=== PATIENT | male | born 1990 | race Caucasian/White ===

== ENCOUNTER 2017-04-24 15:53 | Emergency (ER) | payer SELFPAY ==
[~2017-04-24 15:53] MED LIST: HYDR-3533 PO; TAMS0.4C67 PO; ZOFR4TAB3 SL
[2017-04-24 15:54] VITALS: BP 131/75; PULSE 69; RESP 16; TEMP 97.8; O2SAT 99
== END 2017-04-24 16:33 | disposition left against medical advice (07) ==
LOC: NED 15:53
DX: R10.9 Unspecified abdominal pain (principal); Z53.21 Procedure and treatment not carried out due to patient leaving prior to being seen by health care provider
CPT/HCPCS: 99281